=== PATIENT | male | born 1985 | race Caucasian/White ===

== ENCOUNTER 2018-02-28 10:11 | Emergency (ER) | payer SELFPAY ==
[2018-02-28] MEDS ORDERED: diphenhydrAMINE 50 MG/ML VIAL ONE (11:10)
[2018-02-28] MEDS ORDERED: Acetaminophen 500 MG TAB ONE (11:11)
[2018-02-28] MEDS ORDERED: Meclizine HCl 25 MG TAB ONE (11:11)
--- NOTE | 2018-02-28 12:11 | CT ---
CT HEAD WITHOUT CONTRAST: Date: 02/28/18 Multiple axial tomograms obtained through the head without IV enhancement. HISTORY: Headache. FINDINGS: Ventricles have normal size and position. No evidence of intracranial mass or hemorrhage. No evidence of infarct or edema. Maxillary sinuses are not imaged; however, the visualized mastoid air cells and sphenoid sinuses are clear. IMPRESSION: No acute abnormality. POS: [facility]
== END 2018-02-28 12:29 | disposition home or self-care (01) ==
LOC: ERS 10:11
DX: R51 Headache (principal); J45.909 Unspecified asthma, uncomplicated
CPT/HCPCS: 70450; 96361; 96374; J1200

== ENCOUNTER 2018-02-28 17:54 | Emergency (ER) | payer SELFPAY ==
[2018-02-28] MEDS ORDERED: Ketorolac Tromethamine 30 MG/ML VIAL ONE (18:31)
[2018-02-28] MEDS ORDERED: Dexamethasone 4 MG TAB ONE (18:37)
[2018-02-28] MEDS ORDERED: Diazepam 5 MG TAB ONE (19:38)
[2018-02-28] MEDS ORDERED: Morphine 4 MG/ML VIAL ONE (19:39)
[2018-02-28] MEDS ORDERED: Ondansetron ODT 4 MG TAB ONE (19:39)
== END 2018-02-28 21:12 | disposition home or self-care (01) ==
LOC: ERS 17:54
DX: K02.9 Dental caries, unspecified (principal); H66.92 Otitis media, unspecified, left ear; J45.909 Unspecified asthma, uncomplicated
CPT/HCPCS: 96372; J1885; J2270; J8540; Q0162

== ENCOUNTER 2018-08-17 09:12 | Emergency (ER) | payer SELFPAY ==
[2018-08-17] MEDS ORDERED: Ketorolac Tromethamine 60 MG/2 ML VIAL ONE (10:56)
--- NOTE | 2018-08-17 11:46 | RAD ---
RIGHT FOOT 3 VIEWS: Date: 08/17/18 INDICATION: Right foot pain for over 1 month. COMPARISON: None. FINDINGS: There is mild enthesopathic change off the plantar calcaneus. No acute fracture or subluxation is maicol dent. Lisfranc alignment is preserved. Bone mineralization appears within normal limits. IMPRESSION: Mild enthesopathic change off the plantar calcaneus. No acute osseous abnormality demonstrated. POS: [facility]
== END 2018-08-17 11:03 | disposition home or self-care (01) ==
LOC: ERS 09:12
DX: M25.571 Pain in right ankle and joints of right foot (principal); J45.909 Unspecified asthma, uncomplicated
CPT/HCPCS: 96372; J1885

== ENCOUNTER 2018-12-03 11:44 | Emergency (ER) | payer SELFPAY | END 2018-12-03 12:28 | disposition home or self-care (01) | LOC: SCSER 11:44 | DX: M79.641 Pain in right hand (principal); J45.909 Unspecified asthma, uncomplicated | CPT/HCPCS: 99281 ==